=== PATIENT | female | born 1960 | race Caucasian/White ===

== ENCOUNTER 2024-07-23 13:44 | Outpatient (CLI) | payer MEDICARE, MEDICAID, SELFPAY | END 2024-07-23 13:45 | disposition home or self-care (01) | LOC: INJ CL 13:47 | PROVIDERS: PCP Family Medicine; Visit Provider Family Medicine | DX: M17.11 Unilateral primary osteoarthritis, right knee (principal); M25.561 Pain in right knee | CPT/HCPCS: 64454 ==